=== PATIENT | female | born 1995 | race African-American/Black ===

== ENCOUNTER 2024-12-11 18:03 | Emergency (ER) | payer MEDICAID ==
[~2024-12-11] VITALS: Ht 152.4 cm; Wt 88.5 kg
[2024-12-11 18:04] VITALS: O2SAT 100
[2024-12-11] MEDS: ONDANSETRON HCL 4MG/2ML INJ IV STA (18:16)
[2024-12-11] MEDS: MORPHINE SULFATE 4 MG/ML INJ (FOR IV/IM USE) IV STA (18:16)
[2024-12-11] MEDS: ACETAMINOPHEN 325MG TABLET PO ONE (19:18)
[2024-12-11 19:52] LABS: BASOPHILS % 0.6 % (0.0-2.0); EOSINOPHILS % 0.9 % (0.0-5.0); HEMOGLOBIN. 13.4 g/dL (12.0-16.0); LYMPHOCYTES % 22.8 % (20.0-50.0); MEAN CORPUSCULAR HEMOGLOBIN 29.7 pg (28.0-32.0); MEAN CORPUSCULAR HGB CONC 34.3 g/dL (31.0-37.0); MEAN CORPUSCULAR VOLUME 86.4 fL (81.0-99.0); MEAN PLATELET VOLUME 7.9 fl (7.4-10.4); MONOCYTES % 6.1 % (2.0-8.0); NEUTROPHILS % 69.6 % (40.0-76.0); PLATELET 281 x1000/uL (130-400); RED BLOOD CELL COUNT 4.52 mill/uL (4.2-5.4); RED CELL DISTRIBUTION WIDTH 13.2 % (11.6-14.6); WHITE BLOOD COUNT 11.8 x1000/uL (4.5-11.0)
[2024-12-11 19:56] LABS: CHLORIDE 108 mEq/L (98-107); POTASSIUM 3.8 mEq/L (3.5-5.1); SODIUM 141 mEq/L (136-145)
[2024-12-11 19:57] LABS: CALCIUM 8.6 mg/dL (8.7-10.4); CARBON DIOXIDE 25 mEq/L (21-32)
[2024-12-11 20:02] LABS: CREATININE 0.7 mg/dL (0.6-1.0); GLUCOSE 81 mg/dL (70-105); UREA NITROGEN BLOOD 11 mg/dL (9-23)
[2024-12-11 20:04] LABS: ETHANOL BLOOD < 10 mg/dL (<10); PROTHROMBIN TIME 10.3 sec (9.6-11.0)
[2024-12-11 20:07] LABS: HCG SCREEN NEGATIVE
[2024-12-11] MEDS ORDERED: KETOROLAC 15MG/ML VIAL IM ONE (23:30)
[2024-12-12] VITALS: BP 125/68; PULSE 67; RESP 18; TEMP 37; O2SAT 100
[2024-12-12] MEDS ORDERED: IOHEXOL-350 100 ML BOTTLE ONE
== END 2024-12-12 00:10 | disposition home or self-care (01) ==
LOC: ER 18:03
DX: G43.909 Migraine, unspecified, not intractable, without status migrainosus (principal); I65.29 Occlusion and stenosis of unspecified carotid artery
CPT/HCPCS: 80048; 80320; 84703; 85025; 85610; 36415; 71045; 70496; 70498; 70450; 93005; 99291; 96374; 96375; J2405; J2270; Z7610 ×3; Q9967; G0480

== ENCOUNTER 2025-01-24 21:38 | Emergency (ER) | payer MEDICAID ==
[~2025-01-24] VITALS: Ht 152.4 cm; Wt 86.0 kg
[2025-01-24 21:44] VITALS: O2SAT 98
[2025-01-25] MEDS: KETOROLAC 15MG/ML VIAL IV ONE (01:54)
[2025-01-25] MEDS: SODIUM CHLORIDE 0.9% 1,000 ML IV ONE (01:54)
[2025-01-25] MEDS: KETOROLAC 15MG/ML VIAL IM ONE (01:55)
[2025-01-25 03:14] LABS: BASOPHILS % 0.6 % (0.0-2.0); EOSINOPHILS % 1.3 % (0.0-5.0); HEMATOCRIT. 36.1 % (36.0-48.0); HEMOGLOBIN. 12.2 g/dL (12.0-16.0); LYMPHOCYTES % 28.8 % (20.0-50.0); MEAN CORPUSCULAR HEMOGLOBIN 29.6 pg (28.0-32.0); MEAN CORPUSCULAR HGB CONC 33.8 g/dL (31.0-37.0); MEAN CORPUSCULAR VOLUME 87.6 fL (81.0-99.0); MEAN PLATELET VOLUME 7.8 fl (7.4-10.4); MONOCYTES % 7.9 % (2.0-8.0); NEUTROPHILS % 61.4 % (40.0-76.0); PLATELET 258 x1000/uL (130-400); RED BLOOD CELL COUNT 4.12 mill/uL (4.2-5.4); RED CELL DISTRIBUTION WIDTH 13.6 % (11.6-14.6); WHITE BLOOD COUNT 9.1 x1000/uL (4.5-11.0)
[2025-01-25 03:20] LABS: CARBON DIOXIDE 22 mEq/L (21-32); CHLORIDE 114 mEq/L (98-107); POTASSIUM 3.2 mEq/L (3.5-5.1); SODIUM 143 mEq/L (136-145)
[2025-01-25 03:21] LABS: CALCIUM 8.9 mg/dL (8.7-10.4)
[2025-01-25 03:25] LABS: CREATININE 0.6 mg/dL (0.6-1.0)
[2025-01-25 03:26] LABS: GLUCOSE 102 mg/dL (70-105); UREA NITROGEN BLOOD 9 mg/dL (9-23)
[2025-01-25 03:27] LABS: ALANINE AMINOTRANSFERASE 18 IU/L (10-49); ALBUMIN 3.4 g/dL (3.2-4.8); ASPARTATE AMINOTRANSFERASE 35 IU/L (<34)
[2025-01-25 03:28] LABS: BILIRUBIN DIRECT 0.3 mg/dL (<=3.0); BILIRUBIN TOTAL 0.9 mg/dL (0.1-1.0); PROTEIN TOTAL 6.1 g/dL (6.0-8.3)
[2025-01-25 03:33] LABS: HCG SCREEN NEGATIVE
[2025-01-25] MEDS: HYDROCODONE/ACETAMINOPHEN 5/325MG TABLET PO ONE (05:33)
[2025-01-25] MEDS: KETOROLAC 30MG/ML VIAL IV STA (09:52)
[2025-01-25 11:24] VITALS: BP 120/61; PULSE 78; RESP 18; TEMP 37; O2SAT 99
== END 2025-01-25 11:40 | disposition home or self-care (01) ==
LOC: ER 21:46
DX: S02.2XXA Fracture of nasal bones, initial encounter for closed fracture (principal); M25.562 Pain in left knee; M25.561 Pain in right knee; M79.631 Pain in right forearm; R07.81 Pleurodynia; R10.11 Right upper quadrant pain; M54.2 Cervicalgia; I10 Essential (primary) hypertension; Z59.02 Unsheltered homelessness; Z79.899 Other long term (current) drug therapy; Y04.0XXA Assault by unarmed brawl or fight, initial encounter; Y93.89 Activity, other specified; Y92.89 Other specified places as the place of occurrence of the external cause; Y99.8 Other external cause status
CPT/HCPCS: 99285; 70450; 96374; 96361; 71045; 80076; 80048; 84703; 83690; 85025; 36415; 73060; 73080; 73090; 73560; 70486; 71260; 72125; 74177; 96376; Q9967; J1885 ×2; J7030; 96375

== ENCOUNTER 2025-04-27 15:03 | Emergency (ER) | payer MEDICAID ==
[~2025-04-27] VITALS: Ht 152.4 cm; Wt 87.0 kg
[2025-04-27 15:12] VITALS: O2SAT 99
[2025-04-27 16:21] LABS: CLARITY URINE CLOUDY (CLEAR); COLOR URINE YELLOW (YELLOW); GLUCOSE URINE NEGATIVE (NEGATIVE); KETONES URINE 3+ (NEGATIVE); LEUKOCYTE ESTERASE URINE NEGATIVE (NEGATIVE); NITRITE URINE NEGATIVE (NEGATIVE); OCCULT BLOOD URINE 3+ (NEGATIVE); PH URINE 6.0 (4.5-8.0); PROTEIN URINE TRACE (NEGATIVE); SPECIFIC GRAVITY URINE 1.022 (1.005-1.030); UROBILINOGEN URINE 1.0 E.U./dL (0.2-1.0)
[2025-04-27 16:44] LABS: BACTERIA URINE 3+; SQUAMOUS EPITHELIAL CELL URINE 1+ /lpf (RARE/1+); WBC URINE 0-2 /hpf (0-2)
[2025-04-27 17:00] LABS: BASOPHILS % 0.4 % (0.0-2.0); EOSINOPHILS % 0.7 % (0.0-5.0); HEMATOCRIT. 38.5 % (36.0-48.0); HEMOGLOBIN. 13.4 g/dL (12.0-16.0); LYMPHOCYTES % 16.1 % (20.0-50.0); MEAN PLATELET VOLUME 7.9 fl (7.4-10.4); MONOCYTES % 4.7 % (2.0-8.0); NEUTROPHILS % 78.1 % (40.0-76.0); PLATELET 232 x1000/uL (130-400); RED BLOOD CELL COUNT 4.46 mill/uL (4.2-5.4); RED CELL DISTRIBUTION WIDTH 14.1 % (11.6-14.6)
[2025-04-27 17:15] LABS: CREATININE 0.6 mg/dL (0.6-1.0); UREA NITROGEN BLOOD 7 mg/dL (9-23)
[2025-04-27 17:28] LABS: B-HCG QUANTITATIVE 104771 mIU/mL (<6)
[2025-04-27] MEDS ORDERED: PNV1TABL59 MT (17:40)
[2025-04-27 18:06] VITALS: BP 122/67; PULSE 87; RESP 18; TEMP 36.7; O2SAT 99
== END 2025-04-27 18:07 | disposition home or self-care (01) ==
LOC: ER 15:06
DX: O20.0 Threatened abortion (principal); O10.911 Unspecified pre-existing hypertension complicating pregnancy, first trimester; Z3A.09 9 weeks gestation of pregnancy; Z90.721 Acquired absence of ovaries, unilateral
CPT/HCPCS: 36415; 76801; 80048; 81003; 84702; 85025; 86850; 86900; 99284